=== PATIENT | female | born 1955 | race Caucasian/White ===

== ENCOUNTER → 2017-09-14 | Day surgery (SDC) | payer OTHER ==
[~2017-09-14] MED LIST: LACTATED RINGER'S 1000 ML INJ 1,000 ML ONE; PROPOFOL 100 MG/10 ML INJ IV ONE
--- NOTE | 2017-09-14 08:18 | GIPROC ---
[facility] [address], [id number] EGD PROCEDURE REPORT EXAM DATE: 09/14/2017 PATIENT NAME: Petra Fairchild MR #: [id number] BIRTHDATE: 1955 ATTENDING: García Garcia MD ORDER #: [id number] AUT[employer] HEATER MECHANIC: none STATUS: outpatient INDICATIONS: The patient is a 62 yr old female here for an EGD due to heartburn PROCEDURE PERFORMED: EGD w/ biopsy MEDICATIONS: None and Per Anesthesia. TOPICAL ANESTHETIC: none CONSENT: The patient understands the risks and benefits of the procedure and understands that these risks include, but are not limited to: sedation, allergic reaction, infection, perforation and/or bleeding. Alternative means of evaluation and treatment include, among others: physical exam, x-rays, and/or surgical intervention. The patient elects to proceed with this endoscopic procedure. medical equipment was checked for proper function. Hand hygiene and appropriate measures for infection prevention was taken. After the risks, benefits and alternatives of the procedure were thoroughly explained, Informed consent was verified, confirmed and timeout was successfully executed by the treatment team. The patient was anesthetized with anesthesia and the EC-[id number] ([id number]) endoscope was introduced through the mouth and advanced to the second portion of the duodenum. Mild gastritis noted. Biospy of antrum done. Retroflexed views revealed a small hiatal hernia The gastroscope was then slowly withdrawn and removed. STOMACH: There was mild gastritis in the gastric body. ADVERSE EVENTS: There were no complications. IMPRESSIONS: 1. There was mild gastritis in the gastric body 2. Retroflexed views revealed a hiatal hernia RECOMMENDATIONS: 1. Anti-reflux regimen 2. Await biopsy results. Biopsy results will not be ready for 7-10 days. If you don't hear from us in two weeks, call our office for biopsy results. PATIENT CONDITION: fair DISPOSITION: Home REPEAT EXAM: NONE García Garcia MD eSigned: García Garcia MD 09/14/2017 8:18 AM cc: García Garcia MD
== END | disposition home or self-care (01) ==
LOC: ESDC 06:44
PROVIDERS: ATTEND Surgery
DX: R12 Heartburn (principal); K29.70 Gastritis, unspecified, without bleeding; K44.9 Diaphragmatic hernia without obstruction or gangrene
CPT/HCPCS: 00731; 43239; 88305; 88312; J3010; J7120